=== PATIENT | male | born 1980 | race Caucasian/White ===

== ENCOUNTER 2016-12-08 11:28 | Inpatient (IN) | payer SELFPAY ==
[~2016-12-08] VITALS: Ht 177.8 cm; Wt 95.3 kg
[~2016-12-08 11:28] MED LIST: CEPH500C3 PO; DIPH2%T PO; PRED20 PO; RANI150 PO
[2016-12-08 11:30] VITALS: BP 154/88; PULSE 67; RESP 16; TEMP 97.9; O2SAT 97
--- NOTE | 2016-12-08 11:35 | PD ---
Physical Exam Time Seen by Provider: 11:33 Narrative 36yo M c/o LLQ abd pain since last night. +vomiting. Unknown fever. Denies urinary symptoms. Patient seen in triage. VS reviewed. Patient awaiting bed placement. Data Data Last Documented VS Vital Signs Date Time Temp Pulse Resp B/P Pulse Ox O2 Delivery O2 Flow Rate FiO2 12/08/16 11:30 97.9 67 16 154/88 97 MDM Supervised Visit with VLADIMIR: Ree Yanez Dec 08, 2016 11:35
[2016-12-08] MEDS ORDERED: PROPOFOL 200 MG/20 ML AMP IV ONE (12:00)
[2016-12-08] MEDS ORDERED: NEOSTIGMINE 3 MG/3 ML SYR IV ONE (12:00)
[2016-12-08] MEDS ORDERED: LACTATED RINGER'S 1000 ML INJ 1,000 ML IV ONE (12:00)
[2016-12-08] MEDS ORDERED: ONDANSETRON HCL 4 MG/2 ML VIAL IV PUSH ONE (12:00)
[2016-12-08] MEDS ORDERED: SODIUM CHLOR 0.9% 1000 ML INJ 1,000 ML IV SCH (14:48)
[2016-12-08 14:57] VITALS: BP 147/93; PULSE 67; RESP 18; TEMP 98.3; O2SAT 97; O2SAT 98
[2016-12-08] MEDS ORDERED: SODIUM CHLORIDE 0.9% FLUSH 10 ML FLUSH IV FLUSH PRN ×2 (15:00→20:30)
[2016-12-08] MEDS ORDERED: ONDANSETRON HCL 4 MG/2 ML VIAL IVP ONE (15:00)
[2016-12-08 15:41] LABS: AUTOMATED NEUTROPHIL # 16.2 TH/MM3 (1.8-7.7); BASOPHIL % 0.1 % (0.0-2.0); EOSINOPHIL % 0.2 % (0.0-4.0); HEMATOCRIT 44.5 % (39.0-51.0); HEMO FLAGS DIFF FINAL; LYMPH % 9.1 % (9.0-44.0); LYMPHOCYTE # 1.7 TH/MM3 (1.0-4.8); MEAN CELL VOLUME 91.7 FL (80.0-100.0); MEAN CORPUSCULAR HEMOGLOBIN 30.9 PG (27.0-34.0); MEAN CORPUSCULAR HGB CONC 33.7 % (32.0-36.0); MONO % 3.7 % (0.0-8.0); NEUT % 86.9 % (16.0-70.0); PLATELET COUNT 328 TH/MM3 (150-450); RED BLOOD COUNT 4.85 MIL/MM3 (4.50-5.90); WHITE BLOOD COUNT 18.7 TH/MM3 (4.0-11.0)
[2016-12-08] MEDS ORDERED: IOHEXOL 350 MG/ML 10 ML VIAL (for RAD DIAG) IV ONE (15:53)
[2016-12-08 15:57] LABS: ALT (GPT) 70 U/L (12-78); ANION GAP 8 MEQ/L (5-15); AST (GOT) 19 U/L (15-37); BICARBONATE 27.3 MEQ/L (21.0-32.0); BLOOD UREA NITROGEN 13 MG/DL (7-18); CHLORIDE 104 MEQ/L (98-107); GLOMERULAR FILTRATION RATE 94 ML/MIN (>89); POTASSIUM 3.8 MEQ/L (3.5-5.1); SODIUM (NA) 139 MEQ/L (136-145)
[2016-12-08 16:00] LABS: ALKALINE PHOSPHATASE 83 U/L (45-117); TOTAL BILIRUBIN ADULT 0.5 MG/DL (0.2-1.0)
--- NOTE | 2016-12-08 16:15 | PD ---
HPI Chief Complaint: Abdominal Pain Time Seen by Provider: 15:00 Travel History International Travel<30 days: No Contact w/Intl Traveler<30days: No Traveled to known affect area: No History of Present Illness HPI Patient is a 36-year-old male presenting to emergency for evaluation of abdominal pain. Patient states the pain started last night and is in his lower abdomen. Patient reports vomiting and dry heaving. He reports the pain is a 10 out of 10 aching and cramping. He also reports mucus in his stools. Denies any contaminated foods, sick contacts. He denies a significant past medical history. He denies any fever, chills, headache, shortness of breath, diarrhea or chest pain. FORMERLY [facility], [facility] Past Medical History Medical History: Denies Significant Hx Immunizations Current: Yes Tetanus Vaccination: Unknown Past Surgical History Surgical History: No Previous Surgery Social History Alcohol Use: Yes (SOCIALLY - mix drinks) Tobacco Use: Yes (05/10 PPD) Substance Use: No Allergies-Medications (Allergen,Severity, Reaction): Coded Allergies: No Known Allergies (Unverified , 12/08/16) Reported Meds & Prescriptions Reported Meds & Active Scripts Active No Active Prescriptions or Reported Medications Review of Systems Except as stated in HPI: all other systems reviewed are Neg HENT: No: Headaches Cardiovascular: No: Chest Pain or Discomfort Respiratory: No: Shortness of Breath Gastrointestinal: Positive: Nausea, Vomiting, Abdominal Pain, No: Changes in Bowel Habits Genitourinary: No: Dysuria Physical Exam Narrative GENERAL: Well-developed, well-nourished, alert male. Resting comfortably in no acute distress. SKIN: Warm and dry. HEAD: Atraumatic. Normocephalic. EYES: Pupils equal and round. No scleral icterus. No injection or drainage. ENT: No nasal bleeding or discharge. Mucous membranes pink and moist. NECK: Trachea midline. No JVD. CARDIOVASCULAR: Regular rate and rhythm. RESPIRATORY: No accessory muscle use. Clear to auscultation. Breath sounds equal bilaterally. GASTROINTESTINAL: Abdomen soft, tender to palpation in bilateral lower quadrants , nondistended. Hepatic and splenic margins not palpable. Positive bowel sounds , no rebound, no guarding. MUSCULOSKELETAL: Extremities without clubbing, cyanosis, or edema. No obvious deformities. NEUROLOGICAL: Awake and alert. No obvious cranial nerve deficits. Motor grossly within normal limits. Five out of 5 muscle strength in the arms and legs. Normal speech. PSYCHIATRIC: Appropriate mood and affect; insight and judgment normal. Data Data Last Documented VS Vital Signs Date Time Temp Pulse Resp B/P Pulse Ox O2 Delivery O2 Flow Rate FiO2 12/08/16 14:57 18 12/08/16 14:57 98.3 67 147/93 97 Room Air Orders Complete Blood Count With Diff (12/08/16 14:48) Comprehensive Metabolic Panel (12/08/16 14:48) Lipase (12/08/16 14:48) Ct Abd/Pel W Iv Contrast(Rout) (12/08/16 14:48) Iv Access Insert/Monitor (12/08/16 14:48) Ecg Monitoring (12/08/16 14:48) Oximetry (12/08/16 14:48) NPO (12/08/16 14:48) Ondansetron Inj (Zofran Inj) (12/08/16 15:00) Sodium Chlor 0.9% 1000 Ml Inj (Ns 1000 M (12/08/16 14:48) Sodium Chloride 0.9% Flush (Ns Flush) (12/08/16 15:00) Iohexol 350 Inj (Omnipaque 350 Inj) (12/08/16 15:53) Urinalysis - C+S If Indicated (12/08/16 16:04) Morphine Inj (Morphine Inj) (12/08/16 16:45) Act Partial Throm Time (Ptt) (12/08/16 16:42) Prothrombin Time / Inr (Pt) (12/08/16 16:42) Diet Npo (12/08/16 Dinner) Ceftriaxone Inj (Rocephin Inj) (12/08/16 16:45) Metronidazole 500 Mg Inj (Flagyl 500 Mg (12/08/16 16:45) Bupivacaine-Epi Pf 0.5% Inj (Sensorcaine (12/08/16 17:08) Admit Order (Ed Use Only) (12/08/16 17:14) Labs Laboratory Tests Test 12/08/16 12/08/16 15:00 16:30 White Blood Count 18.7 TH/MM3 Red Blood Count 4.85 MIL/MM3 Hemoglobin 15.0 GM/DL Hematocrit 44.5 % Mean Corpuscular Volume 91.7 FL Mean Corpuscular Hemoglobin 30.9 PG Mean Corpuscular Hemoglobin 33.7 % Concent Red Cell Distribution Width 13.0 % Platelet Count 328 TH/MM3 Mean Platelet Volume 7.7 FL Neutrophils (%) (Auto) 86.9 % Lymphocytes (%) (Auto) 9.1 % Monocytes (%) (Auto) 3.7 % Eosinophils (%) (Auto) 0.2 % Basophils (%) (Auto) 0.1 % Neutrophils # (Auto) 16.2 TH/MM3 Lymphocytes # (Auto) 1.7 TH/MM3 Monocytes # (Auto) 0.7 TH/MM3 Eosinophils # (Auto) 0.0 TH/MM3 Basophils # (Auto) 0.0 TH/MM3 CBC Comment DIFF FINAL Differential Comment Sodium Level 139 MEQ/L Potassium Level 3.8 MEQ/L Chloride Level 104 MEQ/L Carbon Dioxide Level 27.3 MEQ/L Anion Gap 8 MEQ/L Blood Urea Nitrogen 13 MG/DL Creatinine 0.91 MG/DL Estimat Glomerular Filtration 94 ML/MIN Rate Random Glucose 98 MG/DL Calcium Level 9.2 MG/DL Total Bilirubin 0.5 MG/DL Aspartate Amino Transf 19 U/L (AST/SGOT) Alanine Aminotransferase 70 U/L (ALT/SGPT) Alkaline Phosphatase 83 U/L Total Protein 8.0 GM/DL Albumin 4.3 GM/DL Lipase 65 U/L Urine Color LIGHT-YELLOW Urine Turbidity CLEAR Urine pH 6.0 Urine Specific [place] 1.050 Urine Protein NEG mg/dL Urine Glucose (UA) NEG mg/dL Urine Ketones 10 mg/dL Urine Occult Blood SMALL Urine Nitrite NEG Urine Bilirubin NEG Urine Urobilinogen LESS THAN 2.0 MG/DL Urine Leukocyte Esterase NEG Urine RBC 1 /hpf Urine WBC 1 /hpf Microscopic Urinalysis Comment CULT NOT INDICATED MDM Medical Decision Making Medical Screen Exam Complete: Yes Emergency Medical Condition: Yes Interpretation(s) Last Impressions Abdomen/Pelvis CT 12/08/16 1448 Signed Impressions: Service Date/Time: Thursday, December 08, 2016 15:44 - CONCLUSION: Acute appendicitis without perforation. Ben Fernandes MD FACR Laboratory Tests Test 12/08/16 15:00 White Blood Count 18.7 TH/MM3 Red Blood Count 4.85 MIL/MM3 Hemoglobin 15.0 GM/DL Hematocrit 44.5 % Mean Corpuscular Volume 91.7 FL Mean Corpuscular Hemoglobin 30.9 PG Mean Corpuscular Hemoglobin 33.7 % Concent Red Cell Distribution Width 13.0 % Platelet Count 328 TH/MM3 Mean Platelet Volume 7.7 FL Neutrophils (%) (Auto) 86.9 % Lymphocytes (%) (Auto) 9.1 % Monocytes (%) (Auto) 3.7 % Eosinophils (%) (Auto) 0.2 % Basophils (%) (Auto) 0.1 % Neutrophils # (Auto) 16.2 TH/MM3 Lymphocytes # (Auto) 1.7 TH/MM3 Monocytes # (Auto) 0.7 TH/MM3 Eosinophils # (Auto) 0.0 TH/MM3 Basophils # (Auto) 0.0 TH/MM3 CBC Comment DIFF FINAL Differential Comment Sodium Level 139 MEQ/L Potassium Level 3.8 MEQ/L Chloride Level 104 MEQ/L Carbon Dioxide Level 27.3 MEQ/L Anion Gap 8 MEQ/L Blood Urea Nitrogen 13 MG/DL Creatinine 0.91 MG/DL Estimat Glomerular Filtration 94 ML/MIN Rate Random Glucose 98 MG/DL Calcium Level 9.2 MG/DL Total Bilirubin 0.5 MG/DL Aspartate Amino Transf 19 U/L (AST/SGOT) Alanine Aminotransferase 70 U/L (ALT/SGPT) Alkaline Phosphatase 83 U/L Total Protein 8.0 GM/DL Albumin 4.3 GM/DL Lipase 65 U/L Vital Signs Date Time Temp Pulse Resp B/P Pulse Ox O2 Delivery O2 Flow Rate FiO2 12/08/16 14:57 18 12/08/16 14:57 98.3 67 18 147/93 97 Room Air 12/08/16 14:57 98.3 67 18 147/93 98 Room Air 12/08/16 11:30 97.9 67 16 154/88 97 Differential Diagnosis Colitis versus diverticulitis versus appendicitis versus obstruction versus gastroenteritis versus other Narrative Course Patient is a 36-year-old male that presented to emergency evaluation of abdominal pain, nausea, vomiting. Patient's vital signs are stable, is afebrile. at bedside. IV access established, patient placed on telemetry monitoring and continuous pulse oximetry. Patient given IV fluids and Zofran. CBC with white count of 18.7 with left shift Chemistry is unremarkable UA is unremarkable Pain medication ordered per my attending physician. CT of the abd/pelvis read by radiologist shows acute appendicitis w/o perforation. Rocephin and Flagyl IV ordered Discussed with Dr. Ceballos who came to emergency department to assess patient, patient will be admitted to his service. Patient will be kept nothing by mouth for appendectomy later on this evening. Patient and formed of findings and plan. Diagnosis Primary Impression: Acute appendicitis Qualified Code: K35.80 - Acute appendicitis, unspecified acute appendicitis type Admitting Information Admitting Physician Requests: Admit Scripts No Active Prescriptions or Reported Meds Condition: Stable Ana Catalan Dec 08, 2016 16:14
--- NOTE | 2016-12-08 16:41 | RADRPT ---
EXAM DATE/TIME: 12/08/2016 15:44 [place] COMPARISON: No previous studies available for comparison. INDICATIONS : Patient has abdominal pain with vomitting. IV CONTRAST: 95 cc Omnipaque 350 (iohexol) IV ORAL CONTRAST: No oral contrast ingested. RADIATION DOSE: 11.87 CTDIvol (mGy) MEDICAL HISTORY : None SURGICAL HISTORY : None. ENCOUNTER: Initial ACUITY: 1 day PAIN SCALE: 5/10 LOCATION: Left lower quadrant TECHNIQUE: Volumetric scanning of the abdomen and pelvis was performed. Using automated exposure control and ad justment of the mA and/or kV according to patient size, radiation dose was kept as low as reasonably achievable to obtain optimal diagnostic quality images. DICOM format image data is available electro nically for review and comparison. FINDINGS: LOWER LUNGS: The visualized lower lungs are clear. LIVER: Homogeneous density without lesion. There is no dilation of the biliary tree. No calcified gallston es. SPLEEN: Normal size without lesion. PANCREAS: Within normal limits. KIDNEYS: Normal in size and shape. There is no mass, stone or hydronephrosis. ADRENAL GLANDS: Within normal limits. VASCULAR: There is no aortic aneurysm. BOWEL/MESENTERY: There is findings of acute appendicitis without perforation. ABDOMINAL WALL: Within normal limits. RETROPERITONEUM: There is no lymphadenopathy. BLADDER: No wall thickening or mass. REPRODUCTIVE: Within normal limits. INGUINAL: There is no lymphadenopathy or hernia. MUSCULOSKELETAL: Within normal limits for patient age. CONCLUSION: Acute appendicitis without perforation. Ben Fernandes MD FACR on December 08, 2016 at 16:35 Board Certified Radiologist. This report was verified electronically.
[2016-12-08] MEDS ORDERED: cefTRIAXone INJ 2,000 MG in SODIUM CHLORIDE 0.9% INJ 100 ML IV ONE (16:45)
[2016-12-08] MEDS ORDERED: MORPHINE SULFATE 4 MG/ML INJ IV PUSH ONE (16:45)
[2016-12-08] MEDS ORDERED: metroNIDAZOLE 500 MG INJ 100 ML IV ONE (16:45)
[2016-12-08 17:01] LABS: BLOOD, URINE SMALL (NEG); COMMENT (UR) CULT NOT INDICATED; CULTURE IF INDICATED CULT NOT INDICATED; GLUCOSE,URINE NEG (NEG); KETONE, URINE 10 mg/dL (NEG); NITRITE,URINE NEG (NEG); URINE COLOR LIGHT-YELLOW (YELLW/STRAW)
[2016-12-08] MEDS ORDERED: BUPIVACAINE/EPINEPHRINE 0.5% PF 10 ML VIAL ONE (17:08)
[2016-12-08 17:51] LABS: APTT (PATIENT) 26.3 SEC (24.3-30.1); INTERNATIONAL NORMALIZED RATIO 0.9 RATIO; PROTHROMBIN TIME - PATIENT 10.3 SEC (9.8-11.6)
[2016-12-08 18:11] VITALS: BP 129/75; PULSE 79; RESP 16; O2SAT 95; O2SAT 97
[2016-12-08] MEDS ORDERED: fentaNYL CITRATE 250 MCG/5 ML AMP ONE (18:32)
[2016-12-08] MEDS ORDERED: MIDAZOLAM HCL 2 MG/2 ML VIAL ONE (19:06)
[2016-12-08] MEDS ORDERED: *MEPERIDINE 25 MG INJ VIAL PERIprocedural Use ONLY ONE (19:59)
[2016-12-08] MEDS: SODIUM CHLOR 0.9% 1000 ML INJ 1,000 ML IV SCH (20:22)
[2016-12-08] MEDS ORDERED: ONDANSETRON HCL 4 MG/2 ML VIAL IV PRN (20:30)
[2016-12-08] MEDS ORDERED: MORPHINE SULFATE 4 MG/ML INJ IV PRN (20:30)
[2016-12-08] MEDS ORDERED: Post-op Orders (for Pharmacy) MISC XX ONE (20:30)
[2016-12-08] MEDS ORDERED: NALOXONE HCL 0.4 MG/ML AMP IV PRN (20:30)
[2016-12-08] MEDS: PIPERACIL-TAZO 3.375 GM PREMIX 50 ML IV SCH (20:37)
[2016-12-08 20:54] VITALS: BP 131/80; PULSE 80; RESP 17; TEMP 96.6; O2SAT 95
[2016-12-08] MEDS ORDERED: PANTOPRAZOLE SOD 40 MG DELAYED RELEASE TAB PO SCH (21:00)
[2016-12-08] MEDS ORDERED: DO NOT ADM ANY ANTICOAGULANT DRUGS PRN (21:00)
--- NOTE | 2016-12-08 21:04 | MH ---
cc: KIM MOBLEY MD DATE OF ADMISSION: 12/08/2016 ADMISSION DIAGNOSIS Acute appendicitis HISTORY OF PRESENT ILLNESS This pleasant 36-year-old male started having abdominal pain last night. This proceeded through the night. The pain was mainly in mid abdomen. Now it is more in the right lower quadrant and lower quadrants. The patient now presented to the emergency room. He was worked up, found to have acute appendicitis now being admitted for surgery. PAST MEDICAL AND SURGICAL HISTORY Negative. MEDICATIONS None ALLERGIES None. SOCIAL HISTORY Noncontributory. PHYSICAL EXAMINATION GENERAL: A pleasant 36-year-old male in no acute distress. HEENT: Normocephalic. No trauma to the head. Pupils equally reactive. Extraocular muscles intact. NECK: Supple, bilateral carotid pulses. No bruits. CHEST: Clear, bilateral breath sounds. HEART: Regular rhythm. ABDOMEN: Soft. Hypoactive bowel sounds. On palpation very tender in the right lower quadrant but there is positive rebound and guarding as well as referred tenderness from the left lower quadrant. No masses noted. PELVIS: Normal. EXTREMITIES: Within normal limits. IMPRESSION Patient with acute appendicitis for surgery today. Kim SANDOVAL/ /8:47 PM /8:53 PM
[2016-12-08] MEDS: SODIUM CHLORIDE 0.9% FLUSH 10 ML FLUSH IV FLUSH SCH (21:09)
[2016-12-08] MEDS: DOCUSATE SODIUM 100 MG CAP PO SCH (21:24)
[2016-12-08 23:37] VITALS: BP 141/76; PULSE 74; RESP 18; TEMP 97.4; O2SAT 97
[2016-12-09] MEDS: oxyCODONE/ACETAMINOPHEN 5 MG/325 MG TAB PO PRN ×4 (00:33→13:32)
[2016-12-09] MEDS: SODIUM CHLOR 0.9% 1000 ML INJ 1,000 ML IV SCH (04:40)
[2016-12-09] MEDS: PIPERACIL-TAZO 3.375 GM PREMIX 50 ML IV SCH (04:40)
[2016-12-09 04:56] VITALS: BP 135/75; PULSE 71; RESP 18; TEMP 96.7; O2SAT 98
[2016-12-09 07:42] LABS: AUTOMATED NEUTROPHIL # 17.6 TH/MM3 (1.8-7.7); BASOPHIL % 0.1 % (0.0-2.0); EOSINOPHIL % 0.1 % (0.0-4.0); HEMATOCRIT 41.7 % (39.0-51.0); HEMO FLAGS DIFF FINAL; LYMPH % 8.3 % (9.0-44.0); LYMPHOCYTE # 1.7 TH/MM3 (1.0-4.8); MEAN CORPUSCULAR HGB CONC 33.7 % (32.0-36.0); MONO % 3.7 % (0.0-8.0); NEUT % 87.8 % (16.0-70.0); PLATELET COUNT 305 TH/MM3 (150-450); RED BLOOD COUNT 4.53 MIL/MM3 (4.50-5.90); RED CELL DISTRIBUTION WIDTH 13.2 % (11.6-17.2); WHITE BLOOD COUNT 20.1 TH/MM3 (4.0-11.0)
[2016-12-09 08:00] VITALS: BP 121/78; PULSE 74; RESP 18; TEMP 97; O2SAT 98
[2016-12-09 08:07] LABS: BICARBONATE 25.5 MEQ/L (21.0-32.0); POTASSIUM 3.8 MEQ/L (3.5-5.1)
--- NOTE | 2016-12-09 08:30 | MP ---
cc: ANTONIETA MOBLEY MD DATE OF SURGERY 12/08/2016 PREOPERATIVE DIAGNOSIS Acute appendicitis POSTOPERATIVE DIAGNOSIS Acute gangrenous appendicitis PROCEDURE Laparoscopic appendectomy SURGEON Antonieta Mobley MD ANESTHESIA General ESTIMATED BLOOD LOSS 20 cc PROCEDURE The patient prepped and draped in the usual fashion. A small supraumbilical incision made, deepened down to the fascia. Fascia opened under direct vision. Jesica cannula placed. Abdomen insufflated with CO2 and the patient was placed into Trendelenburg with a left tilt. The 30 degrees camera is inserted and the abdomen visualized. The appendix was located in the right paracolic gutter up posteriorly. The suprapubic and left lower quadrant ports were placed under direct vision with a camera and then the instruments inserted with the graspers. The appendix was mobilized and freed from the surrounding tissue. it is kind of stuck to the lateral abdominal wall due to the inflammation. This was gradually freed up without perforating it and the appendix was grasped for the mesoappendix and elevated. An opening is now made with a [place] dissector in the base of the appendix between the mesentery and the appendix itself and then a TANO endoscopic stapler is placed with a vascular load and fired across the appendix and then across the mesentery. Meticulous hemostasis was assured. The area irrigated with copious amounts of saline. The appendix is placed in the EndoCatch bag and delivered through the supraumbilical incision. The area irrigated again once with saline. Once more, the abdomen explored in quadrants. No other abnormalities were found. Instruments withdrawn and incisions closed with 0 Vicryl and 4-0 subcuticular Monocryl. The patient tolerated the procedure well. Antonieta SANDOVAL/ALICIAL /8:45 PM /8:15 AM
[2016-12-09] MEDS: SODIUM CHLORIDE 0.9% FLUSH 10 ML FLUSH IV FLUSH SCH (09:00)
[2016-12-09] MEDS: DOCUSATE SODIUM 100 MG CAP PO SCH (09:20)
[2016-12-09] MEDS ORDERED: PERC5TAB12 PO (11:24)
[2016-12-09] MEDS ORDERED: AUGM875T3 PO (11:25)
[2016-12-09 12:00] VITALS: BP 129/81; PULSE 79; RESP 17; TEMP 97.8; O2SAT 94
[2016-12-09 12:36] VITALS: O2SAT 99
--- NOTE | 2016-12-09 16:30 | PD.CAR.PN ---
CVT Progress Note Subjective/Hospital Course: Patient status post laparoscopic appendectomy for acute appendicitis Incisions are clean and dry Abdomen soft with active bowel sounds patient tolerates diet well He states he feels better today Plan Continue by mouth antibiotics for another 3 days in the face of advanced appendicitis encountered during surgery Regular diet Discharge patient home Follow-up with me in about 2 weeks Objective: Vital Signs Date Time Temp Pulse Resp B/P Pulse Ox O2 Delivery O2 Flow Rate FiO2 12/09/16 12:36 99 12/09/16 12:00 97.8 79 17 129/81 94 12/09/16 10:25 18 12/09/16 08:00 97.0 74 18 121/78 98 12/09/16 04:56 96.7 71 18 135/75 98 12/08/16 23:37 97.4 74 18 141/76 97 12/08/16 20:54 96.6 80 17 131/80 95 12/08/16 20:45 83 17 135/81 96 Room Air 12/08/16 20:30 93 20 136/76 97 Room Air 12/08/16 20:15 81 17 139/79 97 Nasal Cannula 1 12/08/16 20:04 88 19 136/82 95 Nasal Cannula 3 12/08/16 20:00 98.3 113 20 117/84 96 Nasal Cannula 3 12/08/16 18:11 79 16 129/75 97 Room Air Labs: Laboratory Tests Test 12/09/16 06:46 White Blood Count 20.1 TH/MM3 (4.0-11.0) Red Blood Count 4.53 MIL/MM3 (4.50-5.90) Hemoglobin 14.1 GM/DL (13.0-17.0) Hematocrit 41.7 % (39.0-51.0) Mean Corpuscular Volume 92.0 FL (80.0-100.0) Mean Corpuscular Hemoglobin 31.0 PG (27.0-34.0) Mean Corpuscular Hemoglobin 33.7 % Concent (32.0-36.0) Red Cell Distribution Width 13.2 % (11.6-17.2) Platelet Count 305 TH/MM3 (150-450) Mean Platelet Volume 7.8 FL (7.0-11.0) Neutrophils (%) (Auto) 87.8 % (16.0-70.0) Lymphocytes (%) (Auto) 8.3 % (9.0-44.0) Monocytes (%) (Auto) 3.7 % (0.0-8.0) Eosinophils (%) (Auto) 0.1 % (0.0-4.0) Basophils (%) (Auto) 0.1 % (0.0-2.0) Neutrophils # (Auto) 17.6 TH/MM3 (1.8-7.7) Lymphocytes # (Auto) 1.7 TH/MM3 (1.0-4.8) Monocytes # (Auto) 0.7 TH/MM3 (0-0.9) Eosinophils # (Auto) 0.0 TH/MM3 (0-0.4) Basophils # (Auto) 0.0 TH/MM3 (0-0.2) CBC Comment DIFF FINAL Differential Comment Sodium Level 139 MEQ/L (136-145) Potassium Level 3.8 MEQ/L (3.5-5.1) Chloride Level 104 MEQ/L (98-107) Carbon Dioxide Level 25.5 MEQ/L (21.0-32.0) Anion Gap 10 MEQ/L (5-15) Blood Urea Nitrogen 7 MG/DL (7-18) Creatinine 0.84 MG/DL (0.60-1.30) Estimat Glomerular Filtration 103 ML/MIN Rate (>89) Random Glucose 129 MG/DL (74-106) Calcium Level 8.9 MG/DL (8.5-10.1) Result Diagram: 12/09/16 0646 12/09/16 0646 Kim Graves MD Dec 09, 2016 16:30
== END 2016-12-09 17:43 | disposition home or self-care (01) | DRG 343 ==
LOC: NEPD 11:28 → NEDA 17:15 → N06B 20:59
PROVIDERS: ADMIT Surgery; ATTEND Surgery
PROC: 0DTJ4ZZ Resection of Appendix, Percutaneous Endoscopic Approach (ICD-10-PCS; principal; 2016-12-08 18:39)
DX: K35.80 Unspecified acute appendicitis (principal); F17.210 Nicotine dependence, cigarettes, uncomplicated
CPT/HCPCS: 74177; 80048; 80053; 81001; 83690; 85025; 85610; 85730; 88304; 94150; 96361; 96374; 96375; J0696; J2175; J2250; J2270; J2405; J2543; J2710; J3010; J7030; J7120; Q9967

== ENCOUNTER 2017-09-29 14:48 | Emergency (ER) | payer SELFPAY ==
[~2017-09-29] VITALS: Ht 177.8 cm; Wt 99.0 kg
[~2017-09-29 14:48] MED LIST changes: +AUGM875T3 PO; -CEPH500C3 PO; -DIPH2%T PO; +PERC5TAB12 PO; -PRED20 PO; -RANI150 PO
[2017-09-29 14:52] VITALS: BP 141/89; PULSE 84; RESP 16; TEMP 98.4; O2SAT 96
[2017-09-29] MEDS ORDERED: CEPH-460 PO (15:10)
[2017-09-29] MEDS ORDERED: PRED20 PO (15:10)
--- NOTE | 2017-09-29 15:10 | PD ---
HPI Chief Complaint: Skin Problem Time Seen by Provider: 14:55 Travel History International Travel<30 days: No Contact w/Intl Traveler<30days: No Traveled to known affect area: No History of Present Illness HPI 36-year-old male presents to the emergency room for evaluation of itchy rash to his left elbow region for the past day. States he has had symptoms like this in the past and been diagnosed with allergic reaction. He denies any new environmental, medication, or food exposures. 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 He took 50 mg of Benadryl twice this morning without any relief in symptoms. No chronic medical conditions or daily medications. PFSH Past Medical History Cancer: No Cardiovascular Problems: No Endocrine: No Genitourinary: No Immune Disorder: No Musculoskeletal: No Neurologic: No Psychiatric: No Reproductive: No Respiratory: No Immunizations Current: Yes Social History Alcohol Use: Yes (SOCIALLY - mix drinks) Tobacco Use: Yes (1/2 PPD) Substance Use: No Allergies-Medications (Allergen,Severity, Reaction): Coded Allergies: No Known Allergies (Unverified Adverse Reaction, Unknown, 09/29/17) Reported Meds & Prescriptions Reported Meds & Active Scripts Active Augmentin (Amoxicillin-Clavulanate) 875-125 Mg Tab 1 Tab PO BID Percocet (Oxycodone-Acetaminophen) 5-325 mg Tab 1 Tab PO Q4H PRN Review of Systems Except as stated in HPI: all other systems reviewed are Neg Physical Exam Narrative GENERAL: Well-nourished, well-developed male in no acute distress. Afebrile. Ambulatory. SKIN: Focused skin assessment warm/dry. Several clusters of vesicles to the left dorsal, proximal forearm and elbow region. There is surrounding erythema and induration but no lymphangitis. No excoriations. HEAD: Normocephalic. EYES: No scleral icterus. No injection or drainage. NECK: Supple, trachea midline. No JVD or lymphadenopathy. CARDIOVASCULAR: Regular rate and rhythm without murmurs, gallops, or rubs. RESPIRATORY: Breath sounds equal bilaterally. No accessory muscle use. MUSCULOSKELETAL: No cyanosis. Mild edema of the left elbow. Full range of motion of left upper extremity. 2+ radial pulse. Data Data Last Documented VS Vital Signs Date Time Temp Pulse Resp B/P (MAP) Pulse Ox O2 Delivery O2 Flow Rate FiO2 09/29/17 14:52 98.4 84 16 141/89 (106) 96 MDM Medical Decision Making Medical Screen Exam Complete: Yes Emergency Medical Condition: Yes Medical Record Reviewed: Yes Differential Diagnosis Allergic reaction, insect bite, contact dermatitis, cellulitis, shingles Narrative Course 36-year-old male presents to the emergency room for evaluation of itchy rash to his left arm that started yesterday. He denies any new environmental, medication, or food exposures. Denies getting bitten by any bugs or touched by any plants recently though he does work outside. Physical exam reveals a large area of edema and erythema on the left proximal, dorsal forearm/elbow area. There are multiple areas of vesicles in an almost linear distribution. It is most consistent with insect bite or contact dermatitis. Patient will be treated in case of cellulitis with Keflex and also be given prednisone for possible allergic reaction/inflammation. He was told to follow-up with a train clerk or return to the emergency room for worsening symptoms. He understands and agrees to plan. Diagnosis Primary Impression: Vesicular rash Referrals: Primary Care Physician Additional Instructions: Rest and drink plenty of fluids. Continue dxji-vho-tintuny Benadryl and start Pepcid as directed on box. Keflex as directed, until gone. Prednisone as directed, until gone. Follow-up with a primary care physician. Return to the emergency room for worsening symptoms. Med/Other Pt SpecificInfo: Prescription(s) given Disposition: 01 DISCHARGE HOME Condition: Stable Sumaya Man September 29, 2017 15:10
== END 2017-09-29 15:19 | disposition home or self-care (01) ==
LOC: PHEFT 14:48
DX: R23.8 Other skin changes (principal); Z72.0 Tobacco use
CPT/HCPCS: 99282